=== PATIENT | female | born 1975 | race Two or more races ===

== ENCOUNTER → 2016-10-22 | Outpatient (CLI) | payer BC ==
[2016-10-22 10:12] LABS: BASOPHILS # (AUTO) 0.03 10*3/UL; BASOPHILS % (AUTO) 0.5 % (0-1); EOSINOPHILS % (AUTO) 1.2 % (0-8); HEMATOCRIT 41.8 % (37.0-47.0); HEMOGLOBIN 14.2 g/dL (12.0-16.0); IMM GRAN % (AUTO) 0.2 % (0-5); IMM GRAN# (AUTO) 0.01 10*3/UL; LYMPHOCYTES % (AUTO) 21.2 % (10-50); MEAN CORPUSCULAR HEMOGLOBIN 30.1 PG (27-31); MEAN PLATELET VOLUME 10.2 FL (7.4-12.2); MONOCYTES # (AUTO) 0.63 10*3/UL (0.3-0.8); MONOCYTES % (AUTO) 9.6 % (5-15); NEUTROPHILS # (AUTO) 4.44 10*3/UL; NEUTROPHILS % (AUTO) 67.3 % (50-80); RDW COEFFICIENT OF VARIATION 12.7 % (11.5-14.5); RED BLOOD COUNT 4.71 10^6/uL (4.20-5.40); WHITE BLOOD COUNT 6.59 10^3/uL (4.8-10.8)
[2016-10-22 10:17] LABS: PLATELET MORPHOLOGY COMMENT NORMAL MORPHOLOGY (NORM)
[2016-10-22 11:01] LABS: BILIRUBIN,URINE NEGATIVE (NEG); CLARITY,URINE CLEAR (CLEAR); GLUCOSE, URINE (UA) NEGATIVE (NEG); LEUKOCYTE ESTERASE ,URINE NEGATIVE (NEG); NITRATE,URINE NEGATIVE (NEG); OCCULT BLOOD,URINE NEGATIVE (NEG); PROTEIN,URINE NEGATIVE (NEG); UROBILINOGEN,URINE 0.2 EU/dL (0.2)
[2016-10-22 11:03] LABS: ERYTHROCYTE SEDIMENTATION RATE 7 MM/HR (0-20)
[2016-10-22 11:05] LABS: URINE SAMPLE TYPE CLEAN CATCH URINE
[2016-10-22 11:20] LABS: ASPARTATE AMINO TRANSFERASE 19 IU/L (8-39); BILIRUBIN,TOTAL 1.1 mg/dL (0.3-1.2); BLOOD UREA NITROGEN 11 mg/dL (7-22); BUN/CREATININE RATIO 12.22 (6-20); C-REACTIVE PROTEIN 0.7 mg/dL (0.0-0.9); CALCIUM 10.2 mg/dL (8.7-10.7); CHLORIDE 103 meq/L (98-112); CREATININE 0.9 mg/dL (0.50-1.20); EST GLOMERULAR FILTRATION > 60 (>60 ml/min/1.73m(2)); GLUCOSE 117 mg/dL (78-110); POTASSIUM 4.3 meq/L (3.8-5.2); SODIUM 139 meq/L (135-145); TOTAL PROTEIN 7.3 g/dL (6.1-8.0)
== END ==
LOC: LAB 09:46
PROVIDERS: ATTEND Internal Medicine Rheumatology
DX: M25.541 Pain in joints of right hand (principal); I77.6 Arteritis, unspecified
CPT/HCPCS: 36415; 80053; 81003; 85025; 85652; 86140

== ENCOUNTER → 2017-01-16 | Outpatient (CLI) | payer BC ==
[2017-01-16 11:32] LABS: BASOPHILS # (AUTO) 0.04 10*3/UL; BASOPHILS % (AUTO) 0.6 % (0-1); EOSINOPHILS # (AUTO) 0.05 10*3/UL; EOSINOPHILS % (AUTO) 0.8 % (0-8); HEMATOCRIT 42.9 % (37.0-47.0); HEMOGLOBIN 14.5 g/dL (12.0-16.0); LYMPHOCYTES # (AUTO) 1.34 10*3/uL; MEAN CORPUSCULAR HEMOGLOBIN 30.3 PG (27-31); MEAN CORPUSCULAR HGB CONC 33.8 g/dL (33-37); MEAN CORPUSCULAR VOLUME 89.6 FL (81-99); MONOCYTES % (AUTO) 8.1 % (5-15); NEUTROPHILS # (AUTO) 4.24 10*3/UL; NEUTROPHILS % (AUTO) 68.6 % (50-80); RED BLOOD COUNT 4.79 10^6/uL (4.20-5.40)
[2017-01-16 11:35] LABS: PLATELET MORPHOLOGY COMMENT NORMAL MORPHOLOGY (NORM); RBC MORPHOLOGY COMMENT NORMAL MORPHOLOGY (NORM); WBC MORPHOLOGY COMMENT NORMAL MORPHOLOGY (NORM)
[2017-01-16 12:53] LABS: ERYTHROCYTE SEDIMENTATION RATE 5 MM/HR (0-20)
[2017-01-20 07:54] LABS: P-ANCA Positive (Negative)
== END ==
LOC: LAB 11:14
PROVIDERS: ATTEND Internal Medicine Rheumatology
DX: I77.6 Arteritis, unspecified (principal); M06.4 Inflammatory polyarthropathy; Z79.899 Other long term (current) drug therapy
CPT/HCPCS: 36415; 83516; 85025; 85652; 86140; 86255